=== PATIENT | male | born 1985 | race Caucasian/White ===

== ENCOUNTER 2017-02-08 11:27 | Observation (INO) | payer OTHER ==
--- NOTE | ~2017-02-08 | HP ---
Unit #: [id number] #: [id number] Patient: LAUREEN BLAIR [id number] [address] [address] [id number] I MR#: [id number] NAME: LAUREEN BLAIR. ROOM: 27503 Age: 31 Sex: M Admission Date: 02/08/2017 : 1985 Attending Physician: Jonatan Oreilly M.D. HISTORY AND PHYSICAL CHIEF COMPLAINT Overdose. HISTORY OF PRESENT ILLNESS The patient is a 31-year-old male with a history of drug abuse brought to the emergency room with an overdose. The patient is hallucinating and delirious and unable to provide a history. The history is obtained by speaking to the ER physician. The patient used meth and heroin earlier this morning, and patient is visually hallucinating at the bedside. The patient had blood workup that showed CPK of 1782 and is being admitted for the above reasons. PAST MEDICAL HISTORY 1. Drug abuse. 2. Anxiety. PAST SURGICAL HISTORY Right hand surgery. HOME MEDICATIONS None. ALLERGIES No known drug allergies. SOCIAL HISTORY Smokes half a pack per day. Denies any alcohol. History of drug abuse. FAMILY HISTORY Reviewed and none. REVIEW OF SYSTEMS Unavailable as the patient is disoriented. PHYSICAL EXAMINATION GENERAL: Patient is lying in bed not in acute distress. VITAL SIGNS: Temperature 98.6, pulse 115, respirations 26, blood pressure 122/72, and saturating 95% on room air. HEENT: Head atraumatic, normocephalic. Pupils equal, round, and reactive to light and accommodation. Extraocular movements are intact. NECK: Supple. LUNGS: Decreased air entry at the bases. HEART: Regular rate and rhythm. ABDOMEN: Soft. Positive bowel sounds. Unit #: [id number] #: [id number] Patient: LAUREEN BLAIR EXTREMITIES: No cyanosis, no clubbing. NEUROLOGIC: Awake and confused. PSYCHIATRIC: Patient is visually hallucinating and having intermittent extremity movements. DIAGNOSTIC STUDIES LABORATORY: Glucose 91. WBC 17.2, hemoglobin 12.3, hematocrit 37.4, and platelets 292,000. Sodium 134, potassium 3.9, chloride 98, bicarb 22, glucose 96, BUN 40, creatinine 2.3, calcium 8.7, AST 80, ALT 86, alkaline phosphatase 94, and total protein 9. Acetaminophen less than 10, salicylate less than 4, and alcohol less than 5. Urine toxicology is positive for amphetamines and opiates. CPK 1782. CARDIOLOGY: EKG shows normal sinus rhythm at a rate of 100 and voltage criteria for LVH. ASSESSMENT 1. Polysubstance abuse. 2. Rhabdomyolysis. 3. Acute kidney injury. PLAN Admit the patient to observation with telemetry. Patient will get IV fluids of normal saline at 125 mL/hour, a psych evaluation, and a sitter at the bedside. Repeat the labs again in the morning. Dictated by Edgar Holloway/warren TD: 02/08/2017 17:44 JOB #: [id number] HISTORY AND PHYSICAL Page 1 of 1 X JONATAN OREILLY MD X HISTORY AND PHYSICAL
--- NOTE | ~2017-02-08 | DS ---
Unit #: [id number] #: [id number] Patient: LAUREEN TAYLOR [id number] [address] [address] [id number] I MR#: [id number] NAME: LAUREEN TAYLOR ROOM: 2 Age: 31 Sex: M Admission Date: 02/08/2017 : 1985 Discharge Date: 02/10/2017 Attending Physician: Dariela aDily M.D. Primary Care Physician: No Primary Care Physician DISCHARGE SUMMARY PRINCIPAL DIAGNOSES 1. Acute kidney injury, secondary to #2 in combination with prerenal. 2. Drug-induced rhabdomyolysis. 3. Polysubstance abuse including methamphetamine and heroin. 4. IV drug abuse. 5. Hypocalcemia. 6. Anxiety. 7. Mild transaminitis. 8. Moderate protein malnutrition. 9. Tobaccoism. 10. Encephalopathy, medication induced. PROCEDURE None. CLINICAL HISTORY AND HOSPITAL COURSE Mr. Taylor is a 31-year-old male, who was brought into the emergency department after an overdose of heroin and methamphetamine with altered mental status. Patient was found to have an elevated creatinine of 2.3 upon presentation in addition to rhabdomyolysis with a CPK of greater than 1700. He was subsequently placed in observation. Patient is maintained on IV fluids and the following morning, creatinine normalized to 0.5. However, his CPK still remained elevated, greater than 1000. He was monitored one more night and today CPK is now down to 600s. Patient is complaining of some headache but otherwise is clinically much improved and will be discharged home later today. I will note patient to have some mild hypocalcemia, but this has resolved. He also had some mild transaminitis. Viral hepatitis panel was not done, and I will try to check it off blood in lab prior to discharge. HIV is also pending. DISCHARGE CONDITION Stable. DISCHARGE STATUS Discharge to home. DISCHARGE MEDICATIONS None. DISCHARGE INSTRUCTIONS 1. The patient is to refrain from any further tobacco or illicit drug Unit #: [id number] #: [id number] Patient: LAUREEN TAYLOR use. 2. Followup with primary care provider of choice. Dictated by... Aye Stewart M.D. OLEG/ramiro TD: 02/12/2017 09:40 JOB #: [id number] DISCHARGE SUMMARY Page 1 of 1 X Aye Stewart MD DISCHARGE SUMMARY
--- NOTE | ~2017-02-08 | EKG ---
PATIENT: LAUREEN BLAIR UNIT #: [id number] Ventricular Rate: 100 BPM Atrial Rate: 100 BPM P-R Interval: 140 ms QRS Duration: 84 ms Q-T Interval: 370 ms QTC Calculation(Bezet): 477 ms P Wheeler: 56 degrees Calculated R Wheeler: 53 degrees Calculated T Wheeler: 69 degrees Diagnosis Line: Normal sinus rhythm Diagnosis Line: Voltage criteria for left ventricular hypertrophy Diagnosis Line: Abnormal ECG Diagnosis Line: No previous ECGs available Diagnosis Line: Confirmed by CHRISTINE TANNER MD ([id number]) on Diagnosis Line: 02/10/2017 1:09:07 PM INTERPRETING MD: MARYANN
[~2017-02-08 11:27] MED LIST: MOBIC PO; NO MEDICATIONS; VICODIN 5/500 T1 TAB PO
[2017-02-08 13:09] LABS: BASOPHIL# 0.1 X10e3 (0-0.3); BASOPHIL% 0.8 % (0-2.5); DIFF IND YES; EOSINOPHIL# 0.2 X10e3 (0-0.7); EOSINOPHIL% 1.5 % (0.0-7.0); HEMATOCRIT 37.4 % (38.0-50.0); HEMOGLOBIN 12.3 gm/dL (13.0-16.0); LYMPHOCYTE# 3.6 X10e3 (1.0-3.5); LYMPHOCYTE% 21.2 % (17.0-45.0); MEAN CELL VOLUME 85.1 FL (83-96); MEAN CORPUSCULAR HEMOGLOBIN 27.9 PG (28-34); MEAN CORPUSCULAR HGB CONC 32.8 g/dL (30-36); MEAN PLATELET VOLUME 9.1 FL (6.5-11.5); MONOCYTE# 1.8 X10e3 (0-1.0); MONOCYTE% 10.6 % (3.0-12.0); NEUTROPHIL# 11.3 X10e3 (1.5-7.1); NEUTROPHIL% 65.9 % (40-75); PLATELET COUNT 292 X10e3 (140-420); RED BLOOD COUNT 4.39 X10e (3.90-5.60); RED CELL DISTRIBUTION WIDTH 15.5 % (11.0-15.5); WHITE BLOOD COUNT 17.2 X10e3 (4.0-10.5)
[2017-02-08 13:25] LABS: ANISOCYTOSIS SL; PLATELET ESTIMATE NORMAL (NORMAL)
[2017-02-08 13:32] LABS: ALBUMIN SERUM 4.3 g/dL (3.5-5.0); ALKALINE PHOSPHATASE 94 U/L (32-92); ALT (SGPT) 86 U/L (10-40); AST (SGOT) 80 U/L (10-42); BILIRUBIN, DIRECT 0.3 mg/dL (0.0-0.2); BILIRUBIN,INDIRECT 1.3 mg/dL (0.0-0.9); BILIRUBIN,TOTAL 1.6 mg/dL (0.2-2.0); BLOOD UREA NITROGEN 40 mg/dL (9-23); BUN/CREATININE RATIO 17.39; CALCIUM SERUM 8.7 mg/dL (8.4-10.2); CARBON DIOXIDE 22 mmol/L (22-31); CHLORIDE 98 mmol/L (100-111); CREATININE SERUM 2.3 mg/dL (0.6-1.4); GLUCOSE FASTING 96 mg/dL (70-110); POTASSIUM 3.9 mmol/L (3.5-5.1); SALICYLATE <4.0 mg/dL; SODIUM 134 mmol/L (135-145)
[2017-02-08 13:37] LABS: ACETAMINOPHEN <10 ug/mL; ALCOHOL BLOOD <5 mg/dL (0)
[2017-02-08 14:35] LABS: AMPHETAMINE POS (NEG); BARBITURATES NEG (NEG); BENZODIAZEPINES NEG (NEG); COCAINE NEG (NEG); MARIJUANA NEG (NEG); OPIATES POS (NEG); TRICYCLIC ANTIDEPRESSANTS NEG (NEG); U METHADONE NEG (NEG)
[2017-02-09 07:43] LABS: HEMATOCRIT 34.3 % (38.0-50.0); HEMOGLOBIN 11.1 gm/dL (13.0-16.0); MEAN CELL VOLUME 87.4 FL (83-96); MEAN CORPUSCULAR HEMOGLOBIN 28.3 PG (28-34); MEAN CORPUSCULAR HGB CONC 32.4 g/dL (30-36); MEAN PLATELET VOLUME 8.6 FL (6.5-11.5); RED BLOOD COUNT 3.92 X10e (3.90-5.60); RED CELL DISTRIBUTION WIDTH 15.6 % (11.0-15.5); WHITE BLOOD COUNT 8.6 X10e3 (4.0-10.5)
[2017-02-09 08:10] LABS: CALCIUM SERUM 7.9 mg/dL (8.4-10.2); CREATININE SERUM 0.5 mg/dL (0.6-1.4); GLOM FILT RATE Estimated 142.4 mL/min (>60); POTASSIUM 3.7 mmol/L (3.5-5.1)
[2017-02-10 08:24] LABS: HEMATOCRIT 34.6 % (38.0-50.0); HEMOGLOBIN 11.4 gm/dL (13.0-16.0); MEAN CORPUSCULAR HEMOGLOBIN 27.9 PG (28-34); MEAN CORPUSCULAR HGB CONC 32.8 g/dL (30-36); MEAN PLATELET VOLUME 8.7 FL (6.5-11.5); RED BLOOD COUNT 4.08 X10e (3.90-5.60); RED CELL DISTRIBUTION WIDTH 15.1 % (11.0-15.5); WHITE BLOOD COUNT 8.8 X10e3 (4.0-10.5)
[2017-02-10 09:09] LABS: ALBUMIN SERUM 2.9 g/dL (3.5-5.0); BILIRUBIN,TOTAL 0.6 mg/dL (0.2-2.0); CALCIUM SERUM 8.3 mg/dL (8.4-10.2); CREATININE SERUM 0.5 mg/dL (0.6-1.4); GLOM FILT RATE Estimated 142.4 mL/min (>60); POTASSIUM 3.9 mmol/L (3.5-5.1); PROTEIN TOTAL SERUM 6.6 g/dL (6.0-8.3)
[2017-02-15 07:14] LABS: HA AB IGM (HEPPAN) Nonreactive (()); HB CORE AB IGM (HEPPAN) Nonreactive (Nonreactive); HB S AG (HEPPAN) Nonreactive (Nonreactive); HEP C AB (HEPPAN) Reactive (Nonreactive)
== END 2017-02-10 18:40 | disposition home or self-care (01) | DRG 557 ==
LOC: CED 11:27 → CEDOF 16:50 → C5C 16:50 → CED 17:23 → CEDOF 17:23 → C5C 02-09 08:57
PROVIDERS: Emergency Medicine; Internal Medicine
DX: M62.82 Rhabdomyolysis (principal); N17.9 Acute kidney failure, unspecified; F11.10 Opioid abuse, uncomplicated; F15.10 Other stimulant abuse, uncomplicated; G92 Toxic encephalopathy; T50.905A Adverse effect of unspecified drugs, medicaments and biological substances, initial encounter; E83.51 Hypocalcemia; F41.9 Anxiety disorder, unspecified; R74.0 Nonspecific elevation of levels of transaminase and lactic acid dehydrogenase [LDH]; E44.0 Moderate protein-calorie malnutrition; F17.200 Nicotine dependence, unspecified, uncomplicated
CPT/HCPCS: 36415; 80048; 80053; 80074; 80076; 80307; 82550; 82947; 85025; 85027; 87522; 87806; 93005; 94760; 96365; 96374; 99285; G0378; G0480; J1650; J1885; J2060

== ENCOUNTER 2017-04-19 18:13 | Inpatient (IN) | payer OTHER ==
[~2017-04-19] VITALS: Ht 175.3 cm; Wt 65.8 kg
--- NOTE | ~2017-04-19 | CT127 ---
[facility] A Service of [facility] RADIOLOGY TEXT RESULTS PATIENT: LAUREEN BLAIR LOCATION: A 228- : 83 UNIT #: [id number] AGE: [address]: Aye Stewart MD SEX: M ORDER DR: [id number] [facility] [address] [place], [place] [address] [id number] I MR#: [id number] Acc #: [id number] NAME: LAUREEN BLAIR. : 1985 SEX: M STUDY DATE/TIME: 04/21/2017 10:31 UNIT: [facility] ROOM: 228 STUDY DESCRIPTION: CT Upper Ext Lt Wo Cont Attending Physician: Aye Stewart M.D. Ordering Physician: Aye Stewart M.D. Primary Care Physician: No Primary Care Physician MEDICAL IMAGING REPORT This report is preliminary unless electronic signature is present EXAM Elbow, left. HISTORY Left elbow pain, cellulitis since 04/18/2017. Pain with multiple ulcers on skin. Evaluate for septic olecranon bursitis. Amphetamine abuse and heroin. COMMENT CT of the elbow performed, axial plane, without contrast. This CT exam was performed with one or more of the following radiation dose reduction techniques: automatic exposure control, adjustment of mA and/or kV according to patient size, and iterative reconstruction. Plain film comparison is from 04/20/2017. Noncontrast study is limited for assessment of infection and specifically does not evaluate for abscess. If there is concern for septic arthritis or soft tissue abscess, this is best pursued with MRI with and without contrast, left elbow. CT scanning is better suited for bone detail. There is evidence for extensive stranding in the fat around the elbow fairly circumferentially and this is consistent with at least cellulitis. Without contrast, I cannot evaluate for rim-enhancing fluid collection. There is no clear bone destruction. There is no dislocation or fracture. There is a tiny density in the olecranon fossa seen adjacent to the proximal ulna/olecranon, which is probably a small well corticated ossific density. It is more dense than some of the adjacent bone. It has an appearance of a bone fragment, however, on the earlier plain films. IMPRESSION 1. The study is performed without IV contrast media and this limits assessment for abscess. Without IV contrast media, I cannot distinguish between cellulitis and a rim-enhancing fluid collection. There is evidence of extensive cellulitis surrounding the elbow. There is no fracture, dislocation or obvious bone destruction. If [facility] A Service of [facility] RADIOLOGY TEXT RESULTS PATIENT: LAUREEN BLAIR LOCATION: [facility] 228-01 : 83 UNIT #: [id number] AGE: [address]: Aye Stewart MD SEX: M ORDER DR: there is concern for an abscess, patient is best evaluated with a MRI of the elbow if he is a candidate with and without contrast. There is a tiny density adjacent to the olecranon in the olecranon fossa about 2 mm, which is probably a small well corticated ossific density. It is more dense than the adjacent bone on the CT scan, but has the appearance of a small bony density on the accompanying plain films from yesterday. STAT * RESULT Dictated by... Krupa Castillo M.D. THIS IS AN ELECTRONICALLY VERIFIED REPORT Krupa Castillo M.D. at 04/21/2017 2:46 PM ZULEYKA/alan TD: 04/21/2017 11:24 JOB #: [id number] MEDICAL IMAGING REPORT Page 1 of 1 COPY
--- NOTE | ~2017-04-19 | EKG ---
PATIENT: LAUREEN BLAIR UNIT #: [id number] Ventricular Rate: 120 BPM Atrial Rate: 120 BPM P-R Interval: 152 ms QRS Duration: 88 ms Q-T Interval: 302 ms QTC Calculation(Bezet): 426 ms P Theodore: 48 degrees Calculated R Theodore: 27 degrees Calculated T Theodore: 41 degrees Diagnosis Line: Sinus tachycardia Diagnosis Line: Minimal voltage criteria for LVH, may be normal Diagnosis Line: variant Diagnosis Line: Borderline ECG Diagnosis Line: When compared with ECG of 08-FEB-2017 14:47, Diagnosis Line: No significant change was found Diagnosis Line: Confirmed by RADHA AVENDAÑO MD ([id number]) on 04/19/2017 Diagnosis Line: 7:29:42 PM INTERPRETING MD: JAROCHO FERRO
--- NOTE | ~2017-04-19 | DS ---
Unit #: [id number] #: [id number] Patient: LAUREEN TAYLOR [id number] [address] [place], [place] [address] [id number] I MR#: [id number] NAME: LAUREEN TAYLOR. ROOM: 228 Age: 31 Sex: M Admission Date: 04/20/2017 : 1985 Discharge Date: 04/22/2017 Attending Physician: Aye Stewart M.D. Primary Care Physician: No Primary Care Physician DISCHARGE SUMMARY PRINCIPAL DIAGNOSES 1. Sepsis secondary to left elbow cellulitis, presumed Staph. 2. Toxic metabolic encephalopathy secondary to amphetamine intoxication with subsequent withdrawal. 3. Intravenous drug abuse including amphetamines. 4. Mild rhabdomyolysis. 5. Hepatitis C known to patient and not currently receiving any treatment. 6. Anxiety. 7. Tobaccoism. CONSULTANTS Dr. Cabrera - Orthopedic Surgery. PROCEDURES 1. X-ray of left elbow on April 20, 2017, with soft tissue swelling posterior in the region of the olecranon bursa, subcutaneous edema and soft tissue swelling extends proximally and distal to the region. 2. Left upper extremity without contrast on April 21, 2017. There is evidence of extensive cellulitis surrounding the elbow. No fracture dislocation or bone destruction. There is a tiny density adjacent to the olecranon. No rim-enhancing lesion noted. However, this was done without contrast. CLINICAL HISTORY/HOSPITAL COURSE Mr. Taylor is a 31-year-old male who presents to the emergency department with left elbow pain and methamphetamine intoxication. Please refer to H and P for further details. Examination in the emergency department revealed significant cellulitis of the left elbow and patient was subsequently admitted. In regards to patient's cellulitis, he was placed on empiric vancomycin. Over the course of the next several days, patient's leukocytosis has completely resolved and he has remained afebrile for greater than 48 hours. Clinically, cellulitis also appears significantly improved with the exception of the scab overlying the extensor surface of the left elbow. Orthopedics was consulted and patient underwent CT scan without contrast but did not reveal any obvious abscess. There are no plans for surgical intervention at this point. I am going to transition the patient to oral antibiotics. The patient was actively intoxicated with methamphetamines upon presentation and was placed on a mild withdrawal protocol. This was resolved. He is not interested in stopping drug use at this time. Unit #: [id number] #: [id number] Patient: LAUREEN TAYLOR Patient is also known Hep-C positive and does not wish to address treatment at this time. The patient will be discharged home today. I will note he is requesting Percocet upon discharge but he has only been receiving Toradol during hospitalization and Percocet will not be prescribed. DISCHARGE CONDITION Stable. DISCHARGE STATUS Discharge to home. DISCHARGE MEDICATIONS 1. Bactrim DS, one b.i.d. for another one week. 2. Tramadol 50 mg p.o. t.i.d. p.r.n. for pain, number given 12. DISCHARGE INSTRUCTIONS The patient was instructed to follow a regular diet. He is to refrain for any further illicit drug use or tobacco use. FOLLOW UP The patient can follow up in transition clinic in two weeks. Dictated by... Aye Stewart M.D. OLEG/shelly TD: 04/23/2017 10:41 JOB #: [id number] DISCHARGE SUMMARY Page 1 of 1 X Aye Stewart MD X DISCHARGE SUMMARY
--- NOTE | ~2017-04-19 | CR93 ---
[facility] A Service of [facility] RADIOLOGY TEXT RESULTS PATIENT: LAUREEN BLAIR LOCATION: [facility] : 83 UNIT #: [id number] AGE: [address]: Aye Stewart MD SEX: M ORDER DR: [id number] [facility] [address] [place], [place] [address] [id number] I MR#: [id number] Acc #: [id number] NAME: LAUREEN BLAIR. : 1985 SEX: M STUDY DATE/TIME: 04/20/2017 1:31 UNIT: [facility] ROOM: [facility] STUDY DESCRIPTION: CR Elbow Min 3 Views Lt Attending Physician: Aye Stewart M.D. Ordering Physician: Martita Radford M.D. Primary Care Physician: No Primary Care Physician MEDICAL IMAGING REPORT This report is preliminary unless electronic signature is present EXAM Left elbow, 04/20/2017. HISTORY 31-year-old male with left elbow pain and clinical cellulitis. Symptoms over the last 2 days. TECHNIQUE Three-view left elbow series. FINDINGS The examination shows marked soft tissue swelling posteriorly in the region of the olecranon bursa. Subcutaneous edema and soft tissue swelling extends proximal and distal to this region and in the lower upper arm and the proximal forearm. No visible soft tissue gas or radiopaque soft tissue foreign body. Osseous structures of the elbow are normal. No visible joint effusion. IMPRESSION Marked posterior soft tissue swelling. Left elbow series otherwise negative. Dictated by... Yohan Raya M.D. THIS IS AN ELECTRONICALLY VERIFIED REPORT Yohan Raya M.D. at 04/20/2017 5:07 PM RGW/tomas TD: 04/20/2017 09:46 JOB #: [id number] [facility] A Service of [facility] RADIOLOGY TEXT RESULTS PATIENT: LAUREEN BLAIR LOCATION: [facility] : 83 UNIT #: [id number] AGE: [address]: Aye Stewart MD SEX: M ORDER DR: MEDICAL IMAGING REPORT Page 1 of 1 COPY
--- NOTE | ~2017-04-19 | CR93 ---
[facility] A Service of [facility] RADIOLOGY TEXT RESULTS PATIENT: LAUREEN BLAIR LOCATION: [place] [address] : [birth year] UNIT #: [id number] AGE: [address]: Aye Stewart MD SEX: M ORDER DR: [id number] [facility] [address] [place], [place] [address] [id number] I MR#: [id number] Acc #: [id number] NAME: LAUREEN BLAIR. : 1985 SEX: M STUDY DATE/TIME: 04/19/2017 19:03 UNIT: [facility] ROOM: [address]63[address] STUDY DESCRIPTION: CR Elbow Min 3 Views Lt Attending Physician: Martita Radford M.D. Ordering Physician: Long Juarez M.D. Primary Care Physician: Primary Care Physician No MEDICAL IMAGING REPORT This report is preliminary unless electronic signature is present EXAM Left elbow 04/19/2017 INDICATIONS Pain in the left elbow when extending and supinating the arm, symptoms 3 days after a fall, posterior elbow pain and swelling. TECHNIQUE Three views. No comparisons. FINDINGS There is mild soft tissue swelling about the olecranon, but no acute fracture, retained opaque foreign body or joint effusion. IMPRESSION 1. Negative. Dictated by... Gilmar Castillo M.D. THIS IS AN ELECTRONICALLY VERIFIED REPORT Gilmar Castillo M.D. at 04/20/2017 11:27 AM OPAL/chacha TD: 04/20/2017 02:07 JOB #: [id number] MEDICAL IMAGING REPORT Page 1 of 1 COPY
--- NOTE | ~2017-04-19 | HP ---
Unit #: [id number] #: [id number] Patient: LAUREEN BLAIR [id number] [address] [address] [id number] I MR#: [id number] NAME: LAUREEN BLAIR ROOM: 61375 Age: 31 Sex: M Admission Date: 04/20/2017 : 1985 Attending Physician: Martita Radford M.D. Primary Care Physician: No Primary Care Physician HISTORY AND PHYSICAL CHIEF COMPLAINT Left elbow pain with methamphetamine intoxication. HISTORY This 31-year-old male with history of methamphetamine abuse, is admitted for left elbow cellulitis. Patient himself is a poor historian. He currently is intoxicated with methamphetamine, hallucinating, laughing with continuous movements. Does make mention of left elbow pain. On examination he has cellulitis of the left elbow. He has multiple superficial ulcers over the skin from his methamphetamine abuse, including over the left elbow. In the ER he was bolused with two L of saline for a heart rate of 145. Given 900 mg of clindamycin. He received 1 mg of IV Ativan without response. I am asking the nurse to give him two more mg of IV Ativan. PAST MEDICAL HISTORY 1. Methamphetamine abuse. 2. Anxiety. 3. Admission for rhabdomyolysis related to methamphetamine abuse 02/2017. The patient did develop acute kidney injury. 4. Polysubstance abuse including methamphetamines and heroin. 5. Right hand surgery. ALLERGIES None. HOME MEDICATIONS None. FAMILY HISTORY Impossible to obtain as patient is intoxicated. SOCIAL HISTORY I believe that patient may be homeless but I am unsure. He states that he smokes tobacco occasionally. Does not drink alcohol. Does inject methamphetamines. REVIEW OF SYSTEMS Impossible to obtain due to intoxication. PHYSICAL EXAMINATION GENERAL: Intoxicated 31-year-old male who is moving continuously in his bed, laughing hallucinating. Unit #: [id number] #: [id number] Patient: LAUREEN BLAIR VITAL SIGNS: Temperature 98.5, pulse was as high as 145, respirations 20, blood pressure 124/92, O2 saturation was 97% on room air. HEENT: Eyes - PERRLA. Pharynx is benign. NECK: Supple without adenopathy or thyromegaly. CHEST: Clear. CARDIAC: Tachy S1 and S2 without murmur. ABDOMEN: Bowel sounds are present. No hepatosplenomegaly, tenderness, or masses. EXTREMITIES: Without edema. Pedal pulses are present. Cellulitis over the left elbow with pain with movement of the left elbow. No splinter hemorrhage noted over the fingernail beds. SKIN: Multiple superficial ulcers from methamphetamine abuse. NEUROLOGIC: Patient is awake, alert, but intoxicated. He is moving continuously. Hallucinating and laughing. DIAGNOSTIC STUDIES ADMISSION LABS: Hematocrit is 36.7, white blood count is 14.9, normal platelet count. SMA 12 - calcium is 10.4, protein is 8.7, CPK is 375, C-reactive protein is 1.4. Lactic acid, acetaminophen, salicylate, and alcohol levels are all negligible. Urine tox screen positive for methamphetamines. CARDIOLOGY STUDIES: EKG - sinus tachycardia, rate 120. ASSESSMENT 1. Left elbow cellulitis, rule out septic olecranon bursitis. 2. Methamphetamine intoxication. 3. Tachycardiac secondary to methamphetamine intoxication. PLANS 1. IV fluids. 2. P.r.n. benzos. 3. Vancomycin. 4. Obtain x-ray of the left elbow. Will ask orthopedic surgeon to see to allow early septic olecranon bursitis. 5. Obtain HIV. 6. Patient's tachycardia is due to his methamphetamine abuse. He is not septic. Of course, write for aggressive IV fluids and antibiotics. No need to repeat lactic acid level as this was normal. Dictated by Martita Radford M.D. AML/ts TD: 04/20/2017 05:07 JOB #: [id number] Unit #: [id number] #: [id number] Patient: LAUREEN BLAIR HISTORY AND PHYSICAL Page 1 of 1 X Martita Radford MD HISTORY AND PHYSICAL
--- NOTE | ~2017-04-19 | CO ---
Unit #: [id number] #: [id number] Patient: LAUREEN BLAIR [id number] [address] [place], [place] [address] [id number] I MR#: [id number] NAME: LAUREEN BLAIR. ROOM: 228 Age: 31 Sex: M Admission Date: 04/20/2017 : 1985 Attending Physician: Martita Radford M.D. Primary Care Physician: No Primary Care Physician Consultation Date: 04/20/2017 CONSULTATION REPORT REASON FOR CONSULTATION Left elbow pain. HISTORY OF PRESENT ILLNESS This patient is a 31-year-old male with a history of methamphetamine abuse. He is admitted today for left elbow cellulitis. The patient is an extremely poor historian. He is currently intoxicated with methamphetamine, was hallucinating, making continuous movements. The patient does have multiple superficial ulcers over the skin, multiple areas including his left upper extremity from methamphetamine abuse. Also, noticed that he did have some over his left elbow. Patient does admit to pain but cannot tell me a level. He did deny any numbness or tingling. PAST MEDICAL HISTORY 1. Methamphetamine abuse. 2. Anxiety. 3. History of admission for rhabdomyolysis related to methamphetamine abuse in 03/2017. Patient did develop kidney injury. 4. Polysubstance abuse including methamphetamine and heroin. PAST SURGICAL HISTORY Right hand. HOME MEDICATIONS None. FAMILY HISTORY Impossible to obtain because of intoxication. SOCIAL HISTORY The patient is possibly homeless. He states that he does smoke tobacco occasionally. REVIEW OF SYSTEMS Impossible to obtain. PHYSICAL EXAMINATION GENERAL: Intoxicated 31-year-old, moving continuously in his bed. VITAL SIGNS: Temperature 98.5, blood pressure 124/92, respirations 20, heart rate 80. HEENT: PERRLA. NECK: Supple without adenopathy or thyromegaly. LUNGS: Clear to auscultation. No accessory muscle use. Equal expansion Unit #: [id number] #: [id number] Patient: LAUREEN BLAIR bilaterally. CARDIOVASCULAR: S1, S2. ABDOMEN: Soft, nontender, nondistended. Positive bowel sounds. MUSCULOSKELETAL: Gait not appreciated. Examination of the patient's left elbow did not demonstrate a large effusion. Did have some cellulitis of his left elbow. There is no splinter hemorrhaging noted over his fingernail beds. Patient did have decreased range of motion of his left elbow due to patient. It was really difficult because of the patient's condition to do this examination. Patient did have tenderness to palpation but he had tenderness to palpation in his entire upper extremity. The patient did have good sensation to both dull and sharp. SKIN: He does have multiple ulcers from methamphetamine abuse from what it appears. NEUROLOGICAL: The patient is awake, alert but intoxicated, moving continuously. DIAGNOSTIC STUDIES LABORATORY: Sodium is 138, potassium is 3.9, chloride is 103. CO2 is 25, BUN 13, creatinine 0.9, glucose of 99. HIV is pending. Patient does have old lab of hepatitis C positive. ASSESSMENT 1. Left elbow cellulitis. 2. Methamphetamine abuse. PLAN At this point, will see how he responds to antibiotics. The patient would be in no condition to move forward with a CT or MRI at this point. Will make further recommendations based upon his condition. Dictated by... Brennan Su P.A.-C- for Ed Cabrera M.D. GRAZYNA/shelly TD: 04/20/2017 08:56 JOB #: [id number] CONSULTATION REPORT Page 1 of 1 X X CONSULTATION REPORT
[2017-04-19 19:17] LABS: BASOPHIL# 0.1 X10e3 (0-0.3); BASOPHIL% 0.5 % (0-2.5); DIFF IND NO; EOSINOPHIL# 0.2 X10e3 (0-0.7); EOSINOPHIL% 1.2 % (0.0-7.0); HEMATOCRIT 36.7 % (38.0-50.0); LYMPHOCYTE# 2.7 X10e3 (1.0-3.5); LYMPHOCYTE% 18.4 % (17.0-45.0); MEAN CELL VOLUME 84.4 FL (83-96); MEAN CORPUSCULAR HEMOGLOBIN 27.6 PG (28-34); MEAN CORPUSCULAR HGB CONC 32.7 g/dL (30-36); MEAN PLATELET VOLUME 8.5 FL (6.5-11.5); MONOCYTE# 1.2 X10e3 (0-1.0); MONOCYTE% 7.7 % (3.0-12.0); NEUTROPHIL# 10.7 X10e3 (1.5-7.1); NEUTROPHIL% 72.2 % (40-75); PLATELET COUNT 309 X10e3 (140-420); RED BLOOD COUNT 4.35 X10e (3.90-5.60); RED CELL DISTRIBUTION WIDTH 14.5 % (11.0-15.5); WHITE BLOOD COUNT 14.9 X10e3 (4.0-10.5)
[2017-04-19 19:34] LABS: ACETAMINOPHEN <10 ug/mL; ALCOHOL BLOOD <5 mg/dL (0); ALKALINE PHOSPHATASE 83 U/L (32-92); ALT (SGPT) 37 U/L (10-40); AST (SGOT) 31 U/L (10-42); BILIRUBIN, DIRECT 0.1 mg/dL (0.0-0.2); BILIRUBIN,INDIRECT 0.7 mg/dL (0.0-0.9); BILIRUBIN,TOTAL 0.8 mg/dL (0.2-2.0); BLOOD UREA NITROGEN 13 mg/dL (9-23); BUN/CREATININE RATIO 14.44; CALCIUM SERUM 10.4 mg/dL (8.4-10.2); CARBON DIOXIDE 25 mmol/L (22-31); CHLORIDE 103 mmol/L (100-111); CREATININE SERUM 0.9 mg/dL (0.6-1.4); GLOM FILT RATE Estimated 111.8 mL/min (>60); GLUCOSE FASTING 99 mg/dL (70-110); POTASSIUM 3.9 mmol/L (3.5-5.1); PROTEIN TOTAL SERUM 8.7 g/dL (6.0-8.3); SALICYLATE <4.0 mg/dL; SODIUM 138 mmol/L (135-145)
[2017-04-19 20:50] LABS: AMPHETAMINE POS (NEG); BARBITURATES NEG (NEG); BENZODIAZEPINES NEG (NEG); COCAINE NEG (NEG); MARIJUANA NEG (NEG); OPIATES NEG (NEG); TRICYCLIC ANTIDEPRESSANTS NEG (NEG); U METHADONE NEG (NEG)
[2017-04-20 07:43] LABS: BASOPHIL# 0.1 X10e3 (0-0.3); BASOPHIL% 0.7 % (0-2.5); EOSINOPHIL# 0.2 X10e3 (0-0.7); EOSINOPHIL% 1.9 % (0.0-7.0); HEMATOCRIT 35.1 % (38.0-50.0); HEMOGLOBIN 11.7 gm/dL (13.0-16.0); LYMPHOCYTE# 2.9 X10e3 (1.0-3.5); LYMPHOCYTE% 22.8 % (17.0-45.0); MEAN CELL VOLUME 84.5 FL (83-96); MEAN CORPUSCULAR HEMOGLOBIN 28.2 PG (28-34); MEAN CORPUSCULAR HGB CONC 33.3 g/dL (30-36); MEAN PLATELET VOLUME 8.3 FL (6.5-11.5); MONOCYTE# 1.2 X10e3 (0-1.0); MONOCYTE% 9.4 % (3.0-12.0); NEUTROPHIL# 8.2 X10e3 (1.5-7.1); NEUTROPHIL% 65.2 % (40-75); PLATELET COUNT 231 X10e3 (140-420); RED BLOOD COUNT 4.16 X10e (3.90-5.60); RED CELL DISTRIBUTION WIDTH 14.1 % (11.0-15.5); WHITE BLOOD COUNT 12.6 X10e3 (4.0-10.5)
[2017-04-20 07:48] LABS: DIFF IND NO
[2017-04-20 08:28] LABS: BUN/CREATININE RATIO 14.28; CALCIUM SERUM 8.9 mg/dL (8.4-10.2); CREATININE SERUM 0.7 mg/dL (0.6-1.4); POTASSIUM 4.2 mmol/L (3.5-5.1)
[2017-04-21 06:15] LABS: HEMATOCRIT 34.4 % (38.0-50.0); HEMOGLOBIN 11.4 gm/dL (13.0-16.0); MEAN CELL VOLUME 84.2 FL (83-96); MEAN CORPUSCULAR HGB CONC 33.2 g/dL (30-36); MEAN PLATELET VOLUME 8.6 FL (6.5-11.5); RED BLOOD COUNT 4.09 X10e (3.90-5.60); RED CELL DISTRIBUTION WIDTH 14.3 % (11.0-15.5); WHITE BLOOD COUNT 11.1 X10e3 (4.0-10.5)
[2017-04-21 07:01] LABS: BUN/CREATININE RATIO 15.71; CALCIUM SERUM 8.3 mg/dL (8.4-10.2); CREATININE SERUM 0.7 mg/dL (0.6-1.4); POTASSIUM 3.8 mmol/L (3.5-5.1)
[2017-04-22 06:12] LABS: HEMATOCRIT 34.4 % (38.0-50.0); HEMOGLOBIN 11.3 gm/dL (13.0-16.0); MEAN CELL VOLUME 85.9 FL (83-96); MEAN CORPUSCULAR HEMOGLOBIN 28.3 PG (28-34); MEAN CORPUSCULAR HGB CONC 32.9 g/dL (30-36); MEAN PLATELET VOLUME 9.1 FL (6.5-11.5); RED BLOOD COUNT 4.01 X10e (3.90-5.60); RED CELL DISTRIBUTION WIDTH 14.5 % (11.0-15.5); WHITE BLOOD COUNT 10.4 X10e3 (4.0-10.5)
[2017-04-22 07:34] LABS: BUN/CREATININE RATIO 11.42; CALCIUM SERUM 8.1 mg/dL (8.4-10.2); CREATININE SERUM 0.7 mg/dL (0.6-1.4); POTASSIUM 4.2 mmol/L (3.5-5.1)
[2017-04-22] MEDS ORDERED: TRAMADOL HCL50 M1 PO (14:38)
[2017-04-22] MEDS ORDERED: BACTRIM DS TAB1 EACH PO (14:38)
== END 2017-04-22 18:25 | disposition home or self-care (01) | DRG 871 ==
LOC: CED 18:13 → CEDOF 04-20 01:00 → C2A 04-20 07:41 → CEDOF 04-20 07:41 → C2A 04-20 09:25
PROVIDERS: Emergency Medicine; Internal Medicine
DX: A41.9 Sepsis, unspecified organism (principal); G92 Toxic encephalopathy; L03.114 Cellulitis of left upper limb; M62.82 Rhabdomyolysis; F41.9 Anxiety disorder, unspecified; F11.10 Opioid abuse, uncomplicated; F15.129 Other stimulant abuse with intoxication, unspecified; R00.0 Tachycardia, unspecified; B19.20 Unspecified viral hepatitis C without hepatic coma; Z72.0 Tobacco use
CPT/HCPCS: 36415; 73080; 73200; 80048; 80076; 80202; 80307; 82550; 83605; 85025; 85027; 85652; 86140; 87040; 87806; 93005; 96361; 96365; 96375; 99285; G0480; J1885; J2060; J2405; J3370